=== PATIENT | male | born 1980 | race Caucasian/White ===

== ENCOUNTER 2019-03-19 13:24 | Outpatient (CLI) | payer BC ==
--- NOTE | 2019-03-19 15:50 | MRI ---
MRI LEFT KNEE: Date: 03/19/2019 PROVIDED CLINICAL HISTORY: Left knee pain, history of surgery. FINDINGS: The anterior cruciate ligament, posterior cruciate ligament, medial collateral ligament, and lateral collateral ligamentous complex demonstrate an intact MR appearance, as does the extensor mechanism. There is linear signal alteration present involving the body and posterior horn of the medial meniscu s which appears Grade III on the basis of coronal image 17, series 6. The lateral meniscus demonstrat es no evidence for tear. No focal articular cartilage defect is apparent. The amount of fluid within the knee joint appears physiologic. There is a small Elizabeth's cyst. No focal concerning regional marrow or muscular signal abnormality apparent. IMPRESSION: 1. Grade III signal involving the body of the medial meniscus. 2. Small Elizabeth's cyst. POS: [facility]
== END 2019-03-19 13:25 | disposition home or self-care (01) ==
LOC: SCSMRI 13:24
PROVIDERS: ATTEND Orthopaedic Surgery
DX: M23.92 Unspecified internal derangement of left knee (principal); M71.22 Synovial cyst of popliteal space [Baker], left knee; R93.7 Abnormal findings on diagnostic imaging of other parts of musculoskeletal system